=== PATIENT | male | born 1945 | race Caucasian/White ===

== ENCOUNTER 2017-09-29 15:20 | Outpatient (CLI) | payer OTHER ==
[~2017-09-29] VITALS: Ht 185.4 cm; Wt 97.1 kg
[~2017-09-29 15:20] MED LIST: ASA81 MG PO; KEFLEX500 MG PO; ULTRACET PO
== END 2017-09-29 15:40 | disposition home or self-care (01) ==
LOC: OFIC 805 15:20
DX: H81.11 Benign paroxysmal vertigo, right ear (principal); H61.21 Impacted cerumen, right ear

== ENCOUNTER → 2018-10-06 10:32 | Outpatient (CLI) | payer OTHER | END | disposition home or self-care (01) | LOC: LAB 10:32 | DX: D64.89 Other specified anemias (principal); I10 Essential (primary) hypertension; E11.9 Type 2 diabetes mellitus without complications; E78.00 Pure hypercholesterolemia, unspecified; N39.0 Urinary tract infection, site not specified; E03.8 Other specified hypothyroidism ==

== ENCOUNTER 2018-10-27 11:51 | Emergency (ER) | payer OTHER ==
[~2018-10-27] VITALS: Ht 182.9 cm; Wt 90.7 kg
[2018-10-27] MEDS ORDERED: IBESARTAN (12:04)
[2018-10-27] MEDS ORDERED: BACTRIM 400-801 EACH (12:04)
== END 2018-10-27 14:26 | disposition home or self-care (01) ==
LOC: ER 11:51
DX: L02.415 Cutaneous abscess of right lower limb (principal); B95.61 Methicillin susceptible Staphylococcus aureus infection as the cause of diseases classified elsewhere

== ENCOUNTER 2021-12-31 07:30 | Outpatient (CLI) | payer OTHER ==
[~2021-12-31 07:30] MED LIST changes: +BACTRIM 400-801 EACH; +IBESARTAN
== END 2021-12-31 07:36 | disposition home or self-care (01) ==
LOC: TOM 07:30
PROVIDERS: ATTEND Internal Medicine Gastroenterology
DX: D3A.010 Benign carcinoid tumor of the duodenum (principal); B96.81 Helicobacter pylori [H. pylori] as the cause of diseases classified elsewhere
CPT/HCPCS: 71270; 74178; Q9965

== ENCOUNTER 2022-01-06 13:48 | Outpatient (CLI) | payer OTHER | END 2022-01-06 13:52 | disposition home or self-care (01) | LOC: LAB 13:48 | PROVIDERS: ATTEND Internal Medicine Gastroenterology | DX: D48.9 Neoplasm of uncertain behavior, unspecified (principal) ==

== ENCOUNTER 2024-10-18 13:10 | Outpatient (CLI) | payer OTHER | END 2024-10-18 13:13 | disposition home or self-care (01) | LOC: SONOGRAMA 13:10 | PROVIDERS: ATTEND Surgery | DX: R22.1 Localized swelling, mass and lump, neck (principal) ==

== ENCOUNTER 2024-11-06 09:57 | Outpatient (CLI) | payer OTHER | END 2024-11-06 10:02 | disposition home or self-care (01) | LOC: TOM 09:57 | PROVIDERS: ATTEND Otolaryngology | DX: C76.0 Malignant neoplasm of head, face and neck (principal) | CPT/HCPCS: 70487; Q9965 ==

== ENCOUNTER 2025-01-18 10:27 | Outpatient (CLI) | payer OTHER | END 2025-01-18 10:30 | disposition home or self-care (01) | LOC: SONOGRAMA 10:27 | DX: N18.31 Chronic kidney disease, stage 3a (principal); N40.0 Benign prostatic hyperplasia without lower urinary tract symptoms ==